=== PATIENT | male | born 1995 | race Caucasian/White ===

== ENCOUNTER 2024-07-02 09:41 | Emergency (ER) | payer SELFPAY ==
[2024-07-02 09:43] VITALS: BMI 20.3
[2024-07-02 09:45] VITALS: BP 117/79
--- NOTE | 2024-07-02 10:03 | ED.GENMED ---
History of Present Illness
General
Chief Complaint: Psychiatric Problem
Source: patient, ambulance crew and police
Exam Limitations: none
Time Seen by Provider: 07/02/24 09:45
Nursing documentation reviewed up to this point in time: agreed with
History of Present Illness
History of Present Illness:
28-year-old male with past medical history of chronic depression OCD anxiety presenting to the emergency department today after having thoughts of harming himself. He got extension cord he tied this around his neck and look for a place to fix it to
before doing so called somewhat he no interested to call police to get him from his home to ensure that he was safe. At the time he had disassembled the extension cord and did not harm himself. He denies any particular injury at the time he claims
that he is thought of suicide in the past he has gotten a knife with thoughts of cutting himself but never actually did. He also claims that he was in a state of psychosis 6 months ago and was at [facility] at the time. States that he
has some mild chest discomfort currently but claims he gets this every time he gets very anxious. Denies any chronic medical conditions he does occasionally smoke marijuana but denies any use today. Denies any drinking or drug use. He claims that
he currently takes Zoloft and does follow-up with a primary care doctor. He does not have a psychiatrist or a psychologist.
Review of Systems
Review of Systems
Allergies reviewed?: Yes
All Other Systems: ROS reviewed and negative except as documented in HPI and ROS
Phy Exam
Physical Exam
Physical Exam:
GENERAL: Alert , in no apparent distress
EYE: pupils equal and reactive
NECK: Supple, no significant adenopathy.
ENT: o/p clr, mmm.
CARDIAC: Regular rate and rhythm .
LUNGS: Clear breath sounds bilaterally, no acute respiratory distress, no wheezes/rales/rhonchi
ABDOMEN: Soft, without focal tenderness, no r/g, no cvat
NEUROLOGICAL: Alert and oriented, no focal neuro deficits
SKIN: Warm and dry, skin intact.
MUSCULOSKELETAL: No edema, well perfused.
PSYCH: Normal and appropriate interaction.
Course
Orders/Labs/Results
Orders:
Orders
07/02/24 09:48
Crisis Consult Urgent
Reason for Consult: suicidal
07/02/24 10:03
1:1 Observation - Suicide/ Violent Behavior As Directed
Electrocardiogram (*1) Urgent
Reason for Study: Other
Other Reason for Exam: clearance
EKG- Treatment ONCE
07/02/24 17:28
Lorazepam [Ativan] 1 mg PO NOW STA
Vital Signs
Initial and Last Documented VS:
Initial Vital Signs
Temp Pulse Resp BP Pulse Ox
98.1 F 58 16 117/79 100
07/02/24 09:45 07/02/24 09:45 07/02/24 09:45 07/02/24 09:45 07/02/24 09:45
Last Documented Vital Signs
Temp Pulse Resp BP Pulse Ox
98.6 F 71 14 114/69 99
07/02/24 14:00 07/02/24 14:00 07/02/24 14:00 07/02/24 14:00 07/02/24 14:00
MDM/Problems Addressed
MDM/Problems Addressed:
28-year-old male presenting here with concerns of harming himself. He started the process of trying to hang himself earlier today but did not sustain any injuries and did not carry out the activity. He has some mild chest pain currently but claims
that he gets this every time he gets very anxious and has a panic attack. Denies any recent illness no drug or alcohol use today claims that he did use a small amount of marijuana yesterday. Plan for crisis consult. Patient on 201 with
one-to-one. EKG normal. Patient seen by crisis with plans for psychiatric placement later today. Stable throughout ER stay.
*Critical Care Note
Total Time (30-74mins, 75-104mins- exclusive of procedures): Not Applicable
ED Attending Note
-
Portions of this chart may have been created with voice recognition software.� Occasional wrong word or��sound alike� substitutions may have occurred due to the inherent limitations of voice recognition software.
Discharge Plan
Departure
Patient Disposition: Psych Facility
Date of Disposition: 07/02/24
Time of Disposition: 16:35
Patient with high blood pressure during this ER visit?: No
Condition: Good
Covid-19: Not Applicable
Discharge Problem:
Suicidal ideation
Prescriptions:
No Action
sertraline [Zoloft] 100 mg Tablet
100 mg PO DAILY
Referrals:
Gregory Garza DO [Family Provider] -
Interventions
Interventions:
*Risk Screen - Suicide Last Done: 07/02/24 09:45
*General Assessment Last Done: 07/02/24 09:45
*Neglect/Abuse Screening Last Done: 07/02/24 09:45
ED- Fall Risk Assessment Last Done: 07/02/24 09:45
*Nursing Disposition Last Done: 07/02/24 20:21
ED-Psychological Assessment Last Done: 07/02/24 09:45
Discharge Date and Time
Discharge Date/Time: 07/02/24 20:22
Print Language: [id number]
[2024-07-02 11:00] VITALS: BP 110/74
[2024-07-02 12:00] VITALS: BP 124/67
[2024-07-02 14:00] VITALS: BP 114/69
[2024-07-02] MEDS: ATIVAN 1 MG PO (17:32)
== END 2024-07-02 20:22 ==
LOC: EMR 09:41
PROVIDERS: EMERGENCY PHYSICIAN Emergency Medicine; FAMILY PHYSICIAN Family Medicine
DX: R45.851 Suicidal ideations (principal); F41.9 Anxiety disorder, unspecified; F42.9 Obsessive-compulsive disorder, unspecified
CPT/HCPCS: 99285; 93005